=== PATIENT | male | born 1985 | race Caucasian/White ===

== ENCOUNTER 2021-05-23 21:14 | Emergency (ER) | payer OTHER, SELFPAY ==
[2021-05-23 21:26] VITALS: BP 115/78; PULSE 58; RESP 16; TEMP 36.4; O2SAT 97; BMI 24.3
--- NOTE | 2021-05-23 22:04 | W.ED.DIZZY ---
HPI - Dizziness General: Chief Complaint: Dizziness Stated Complaint: DIZZY/VOMITING Time Seen by Provider: 05/23/21 22:00 History of Present Illness: HPI Narrative: Patient is a 35-year-old male comes to the ED with an episode of dizziness, nausea and vomiting. Symptoms resolved once patient was back in ED room. He states that he was at work all day today and when he drove home he started feeling really dizzy. He had to sinker puller and had multiple episodes of nausea and vomiting. He described the dizziness as a spinning feeling. He felt worse whenever he turns his head either left or right. Denies any similar episodes in the past. He did say for the past approximately 2 weeks he has been having a lot of sinus and nasal congestion drainage. He also reports some mild sinus pain. He says his ears feel kind of full. Patient also told me he is out of his albuterol inhaler and would like to get his prescription refilled. Associated symptoms: Reports nasal congestion; Denies chest pain, chills, headache(s), nausea, palpitations or vomiting Associated neuro symptoms: Deny numbness in extremities Review of Systems Const: Denies: fever(s), chills or fatigue Eyes: Denies: change in vision or eye discomfort ENMT: Reports: nasal discharge, nasal congestion and sinus pain (Bilateral maxillary sinus pain); Denies: throat pain or odynophagia Card: Denies: chest pain, palpitations, edema, swelling of feet/ankles, dyspnea on exertion or orthopnea Resp: Denies: dyspnea, productive cough or non-productive cough GI: Denies: abdominal pain, nausea, vomiting, diarrhea, constipation or hematochezia : Denies: flank pain, difficulty urinating, dysuria or hematuria Musc: Denies: neck pain, back pain or extremity swelling Skin/Breast: Denies: rash or new lesions Neuro: Reports: dizziness; Denies: headache(s), numbness in extremities or weakness in extremities Physical Exam Const: COMMON NORMALS: no acute distress, patient oriented x3, healthy appearing and alert GENERAL APPEARANCE: cooperative and comfortable HENMT: COMMON NORMALS: normocephalic HEAD & SCALP: normocephalic NOSE: Nasal discharge present clear Clear nasal discharge laterality: bilateral MOUTH: Normal oral and palatal mucosa present THROAT: posterior oropharynx normal and uvula midline Eye: COMMON NORMALS: Equal, round and reactive pupils present, EOMs intact bilaterally and conjunctivae normal CONJUNCTIVA: Yes conjunctivae normal PUPIL: Yes Equal, round and reactive pupils present Neck/C-Spine: COMMON NORMALS: supple GENERAL: Yes normal visual inspection Resp: COMMON NORMALS: normal respiratory effort, No retractions, No use of accessory muscles and clear to auscultation bilaterally AUSCULTATION: clear to auscultation bilaterally Cardio: COMMON NORMALS: regular rate, regular rhythm, S1 normal heart sound present, S2 normal heart sound present, No gallops present (Cardio), No clicks present (Cardio), No murmurs present (Cardio) and Peripheral pulses 2+ throughout RATE: regular rate RHYTHM: regular rhythm HEART SOUNDS: S1 normal heart sound present and S2 normal heart sound present PERIPHERAL PULSES: Peripheral pulses 2+ throughout GI: COMMON NORMALS: Normal to inspection, nondistended, normoactive bowel sounds present, Soft to palpation, non-tender and no masses PALPATION: Yes Soft to palpation : COMMON NORMALS: Yes no CVA tenderness BLADDER/KIDNEY EXAM: Yes no CVA tenderness Back/Pelvis: COMMON NORMALS: no CVA tenderness Extremity: COMMON NORMALS: normal to inspection Neuro: COMMON NORMALS: patient oriented x3 and moves all extremities SENSORIUM/ORIENTATION: Yes alert SPEECH: speech normal GAIT: Yes Normal gait present Skin: GENERAL SKIN EXAM: dry skin Course Reevaluation(s): Reevaluation #1: After patient got IV fluids he said he feels a lot better. He denies any nausea or dizziness. He feels like he is back to normal. Time: 23:50 Vital Signs: Vital signs: Vital Signs Temperature 97.5 F L 05/23/21 21:26 Pulse Rate 68 05/24/21 00:35 Respiratory Rate 17 05/24/21 00:35 Blood Pressure 129/74 05/24/21 00:35 Pulse Oximetry 97 05/24/21 00:35 MDM - Dizziness MDM Narrative: Medical decision making narrative: Patient is a 35-year-old male comes to the ED with episode of dizziness nausea and vomiting. His symptoms resolved upon arrival to ED. Patient said he has been dealing with sinus pain, congestion and drainage along with nasal congestion and drainage for the past couple weeks. Exam shows a healthy nontoxic appearing 35-year-old male who is in no acute distress or pain. He does have some maxillary bilateral sinus tenderness and nasal discharge. Exam findings suggestive of sinusitis. Upon evaluation in the ED he had no dizziness or nausea. CBC showed white blood cell count 10.6 but the rest of CBC and CMP were unremarkable. Patient was given IV 1 L fluids said he felt back to normal after IV fluids. He denies any dizziness or nausea. Patient diagnosed with sinusitis and dizziness. He was sent home with a prescription for azithromycin, Medrol Dosepak and meclizine. I also wrote him a prescription for refill on his albuterol inhaler. Patient was told to follow-up with his PCP in 7 to 10 days for reevaluation. Return to ED precautions given. Patient understood and agreed with plan. Lab Data: Attestation: I reviewed the patient's lab results. Labs: Lab Results 05/23/21 05/23/21 Range/Units 23:00 23:00 WBC 10.6 H (4.0-10.0) 10^3/ uL RBC 5.07 (4.1-5.3) 10^6/u L Hgb 15.7 (11.7-16.6) g/dL Hct 45.7 (42.0-52.0) % MCV 90.1 (80-94) fL MCH 31.0 (28.0-34.0) pg MCHC 34.4 (30.0-36.0) g/dL RDW 12.2 (12.1-15.1) % Plt Count 223 (130-400) 10^3/c mm MPV 8.6 (7.4-10.4) fL Neut % (Auto) 84.2 % Lymph % (Auto) 10.0 % [place] % (Auto) 4.6 % Eos % (Auto) 0.2 % Baso % (Auto) 0.6 % Neut # (Auto) 8.89 H (1.8-7.7) 10^3/u L Lymph # (Auto) 1.1 (0.8-4.8) 10^3/u L [place] # (Auto) 0.5 (0.2-0.9) 10^3/u L Eos # (Auto) 0.0 (0.0-0.8) 10^3/u L Baso # (Auto) 0.1 (0.0-0.1) 10^3/u L Nucleated RBC % (a uto) 0 % Nucleated RBCs # 0.0 /100WBC Sodium 138 (136-145) mmol/L Potassium 4.2 (3.5-5.1) mmol/L Chloride 102 (98-107) mmol/L Carbon Dioxide 26 (22-29) mmol/L Anion Gap 14.2 (5-19) BUN 12 (6-20) mg/dL Creatinine 0.8 (0.7-1.2) mg/dL GFR Calculation 108.8 (90-130) mL/min Glucose 98 (65-115) mg/dL Calculated Osmolal ity 286 (285-295) mOsm/k g Calcium 8.9 (8.5-10.5) mg/dL Total Bilirubin 0.4 (0.15-1.2) mg/dL AST 13 (0-40) U/L ALT 20 (0-41) U/L Alkaline Phosphata se 67 (40-130) IU/L Total Protein 6.5 L (6.6-8.7) g/dL Albumin 4.4 (3.5-5.2) g/dL Globulin 2.1 (1.3-4.6) g/dL Discharge Plan Discharge Patient Disposition: Home Clinical Impression: Dizziness Sinusitis Qualifiers: Sinusitis location: maxillary Chronicity: acute Recurrence: non-recurrent Qualified Code(s): J01.00 - Acute maxillary sinusitis, unspecified Condition: Stable Prescriptions: New Medrol (Jaylon) 4 mg tablets,dose pack See Rx Instructions .ROUTE .COMPLEX Qty: 21 RF: 0 azithromycin 250 mg tablet See Rx Instructions .ROUTE .COMPLEX Qty: 6 RF: 0 meclizine 25 mg tablet 25 mg PO DAILY PRN (Reason: dizziness) Qty: 15 RF: 0 albuterol sulfate 90 mcg/actuation HFA aerosol inhaler 2 inh inhalation Q6H PRN (Reason: shortness of breath or wheezing) Qty: 8.5 RF: 0 Discharge Orders: Discharge ED (Routine); Ordered 05/23/21 Ordered By: Husam Nelson Referrals: Wander Parra MD [Primary Care Provider] - Discharge Diet: Regular Discharge Activity: Increase activity as tolerated Patient Instructions: Sinusitis (ED), Dizziness (ED) Activity Restrictions/Additional Instructions: Follow-up with medical provider as directed. Take medications as prescribed. Return to the ER or your medical provider if condition worsens. Please read and understand discharge instructions. Thank you for choosing [facility] for your healthcare needs today. Please realize this is an emergency room and that we are providing you with a medical screening exam and this may not be complete and all inclusive of all the testing and or work up that you may need to determine your ailment or severity of your illness. It is very important that you follow up as instructed or that you return to the Emergency Department should you have concerns or if your condition changes or worsens in any way. Coding Level of Care Code ED Warehouse Logistics Manager for [place] Fwarmen Exam Comprehensive
[2021-05-23] MEDS: sodium chloride 0.9% 1,000 ML 999 ML IV (23:07)
[2021-05-23 23:13] LABS: Basophils # 0.1 10^3/uL (0.0-0.1); Basophils % 0.6 %; Eosinophils % 0.2 %; Hematocrit 45.7 % (42.0-52.0); Hemoglobin 15.7 g/dL (11.7-16.6); Lymphocytes # 1.1 10^3/uL (0.8-4.8); Mean Corpuscular HGB Conc 34.4 g/dL (30.0-36.0); Mean Corpuscular Volume 90.1 fL (80-94); Mean Platelet Volume 8.6 fL (7.4-10.4); Monocytes # 0.5 10^3/uL (0.2-0.9); Monocytes % 4.6 %; Neutrophils # 8.89 10^3/uL (1.8-7.7); Neutrophils % 84.2 %; Nucleated Red Blood Cells % 0 %; Platelet Count 223 10^3/cmm (130-400); Red Blood Count 5.07 10^6/uL (4.1-5.3); Red Cell Distribution Width 12.2 % (12.1-15.1); White Blood Count 10.6 10^3/uL (4.0-10.0)
[2021-05-23 23:52] LABS: Alanine Aminotransferase 20 U/L (0-41); Albumin Level 4.4 g/dL (3.5-5.2); Alkaline Phosphatase 67 IU/L (40-130); Anion Gap 14.2 (5-19); Aspartate Amino Transferase 13 U/L (0-40); Blood Urea Nitrogen 12 mg/dL (6-20); Calcium 8.9 mg/dL (8.5-10.5); Carbon Dioxide 26 mmol/L (22-29); Chloride 102 mmol/L (98-107); Creatinine Clr Calc Pharmacy 149.8385; Globulin 2.1 g/dL (1.3-4.6); Glomerular Filtration Rate 108.8 mL/min (90-130); Glucose 98 mg/dL (65-115); Osmolality Calculated 286 mOsm/kg (285-295); Potassium 4.2 mmol/L (3.5-5.1); Sodium 138 mmol/L (136-145); Total Bilirubin 0.4 mg/dL (0.15-1.2); Total Protein 6.5 g/dL (6.6-8.7)
[2021-05-24 00:35] VITALS: BP 129/74; PULSE 68; RESP 17; O2SAT 97
--- NOTE | 2021-05-24 10:49 | PC.NURSE ---
Pt here and picked up Rx for Albuterol inhaler
== END 2021-05-24 00:15 | disposition home or self-care (01) ==
PROVIDERS: Emergency Provider Physician Assistant; PCP Family Medicine
DX: R42 Dizziness and giddiness (principal); J01.00 Acute maxillary sinusitis, unspecified
CPT/HCPCS: 80053; 85025; 96360; 99283; J7030

== ENCOUNTER 2022-09-04 08:46 | Emergency (ER) | payer OTHER, SELFPAY ==
[2022-09-04 09:08] VITALS: BP 133/66; PULSE 75; RESP 18; TEMP 36.6; O2SAT 95
--- NOTE | 2022-09-04 09:13 | ED_ITS ---
HPI - Wound/Laceration General: Chief Complaint: Wound/Laceration Stated Complaint: Right thumb lac Time Seen by Provider: 09/04/22 08:52 History of Present Illness: Patient is a 36-year-old male who comes to the ED with laceration to right thumb. Injury occurred this morning while working on a roof. He says he was working on some metal giorgi and a piece of the metal roof cut dorsal aspect of his thumb. He is not up-to-date on his tetanus. Associated symptoms: Denies chills, fever(s), nausea or vomiting Review of Systems Const: Denies: fever(s), chills or fatigue Eyes: Denies: change in vision or eye discomfort ENMT: Denies: throat pain, odynophagia, nasal discharge or nasal congestion Card: Denies: chest pain, palpitations, edema, swelling of feet/ankles, dyspnea on exertion or orthopnea Resp: Denies: dyspnea, productive cough or non-productive cough GI: Denies: abdominal pain, nausea, vomiting, diarrhea, constipation or hematochezia : Denies: flank pain, difficulty urinating, dysuria or hematuria Musc: Denies: neck pain, back pain or extremity swelling Skin/Breast: Reports: new lesions (Right thumb laceration); Denies: rash Neuro: Denies: headache(s), numbness in extremities or weakness in extremities PFS ED PFSH: Medical History (Updated 09/05/22 @ 07:13 by ANDIE Lee) No pertinent family history Surgical History (Updated 09/05/22 @ 07:13 by ANDIE Lee) No pertinent past surgical history Physical Exam Const: COMMON NORMALS: no acute distress, patient oriented x3, healthy appearing and alert HENMT: COMMON NORMALS: normocephalic HEAD & SCALP: normocephalic MOUTH: Normal oral and palatal mucosa present THROAT: posterior oropharynx normal and uvula midline Neck/C-Spine: COMMON NORMALS: supple GENERAL: Yes normal visual inspection Resp: COMMON NORMALS: normal respiratory effort, No retractions, No use of accessory muscles and clear to auscultation bilaterally AUSCULTATION: clear to auscultation bilaterally Cardio: COMMON NORMALS: regular rate, regular rhythm, S1 normal heart sound present, S2 normal heart sound present, No gallops present (Cardio), No clicks present (Cardio), No murmurs present (Cardio) and Peripheral pulses 2+ throughout RATE: regular rate RHYTHM: regular rhythm HEART SOUNDS: S1 normal heart sound present and S2 normal heart sound present PERIPHERAL PULSES: Peripheral pulses 2+ throughout GI: COMMON NORMALS: Normal to inspection, nondistended, normoactive bowel sounds present, Soft to palpation, non-tender and no masses PALPATION: Yes Soft to palpation : COMMON NORMALS: Yes no CVA tenderness BLADDER/KIDNEY EXAM: Yes no CVA tenderness Back/Pelvis: COMMON NORMALS: no CVA tenderness Extremity: NARRATIVE EXTREMITY EXAM: Right thumb?1 cm superficial linear laceration to dorsal aspect of thumb. No active bleeding noted. No nailbed injury or nail damage seen. Full range of motion and strength in thumb and no concerns for any tendon laceration. Neurovascular intact. Neuro: COMMON NORMALS: patient oriented x3 SENSORIUM/ORIENTATION: Yes alert GAIT: Yes Normal gait present Skin: GENERAL SKIN EXAM: dry skin Procedures Laceration Laceration 1: Site: hand (Thumb) Side (If applicable): right Size (cm): 1 Description: linear Depth: simple, single layer Local Anesthetic: lidocaine 1% Amount of anesthesia used (mL): 3 Pre-repair: irrigated extensively (With normal saline and cleaned with CHG swab) Skin layer closed with: nylon Size (cm): 4-0 Number of sutures: 3 Technique: simple, interrupted Course Vital Signs: Vital signs: Vital Signs Temperature 97.8 F 09/04/22 09:08 Pulse Rate 75 09/04/22 09:08 Respiratory Rate 18 09/04/22 09:08 Blood Pressure 133/66 09/04/22 09:08 Pulse Oximetry 95 09/04/22 09:08 Oxygen Delivery Me thod 09/04/22 09:08 MDM - Wound/Laceration Medical Decision Making Patient has 1 cm superficial linear laceration to dorsal aspect of thumb. It does not involve any tendons patient has full range of motion in thumb. No nailbed injury or nail damage seen. He was given updated tetanus here in the ED. Lidocaine 1% was used as local and 3 sutures were placed to close laceration. See procedure note for details. He was discharged home with a prophylactic antibiotic prescription. Sutures removed in 7 to 10 days. Patient understood and agreed with plan. Discharge Plan Discharge Patient Disposition: Home Clinical Impression: Finger laceration Qualifiers: Encounter type: initial encounter Finger: thumb Damage to nail status: without damage Foreign body presence: without foreign body Laterality: right Qualified Code(s): S61.011A - Laceration without foreign body of right thumb without damage to nail, initial encounter Condition: Stable Prescriptions: New cephalexin 500 mg capsule 500 mg PO Q6H 4 Days Qty: 16 0RF No Action Medrol (Jaylon) 4 mg tablets,dose pack See Rx Instructions .ROUTE .COMPLEX Qty: 21 0RF Rx Instructions: orally per package directions azithromycin 250 mg tablet See Rx Instructions .ROUTE .COMPLEX Qty: 6 0RF Rx Instructions: take 500 mg today (day 1), then 250 mg for 4 days (days 2-5) meclizine 25 mg tablet 25 mg PO DAILY PRN (Reason: dizziness) Qty: 15 0RF albuterol sulfate 90 mcg/actuation HFA aerosol inhaler 2 inh inhalation Q6H PRN (Reason: shortness of breath or wheezing) Qty: 8.5 0RF Discharge Orders: Discharge ED (Routine); Ordered 09/04/22 Ordered By: Husam Nelson Referrals: Wander Parra MD [Primary Care Provider] - Discharge Diet: Regular Discharge Activity: Resume usual activity Patient Instructions: Finger Laceration (ED) Activity Restrictions/Additional Instructions: Take full course of antibiotics as prescribed. Keep laceration site clean and dry.. Clean daily with soap and water and cover with bandage. Watch for signs of infection such as redness, warmth, increased tenderness and puslike drainage. If you see the signs of infection return to the ED, urgent care or PCP for reevaluation. call your PCP to schedule a follow-up appointment for reevaluation and suture removal in about 7- 10 days. Continue taking all home meds. Follow discharge plans as discussed. You can return to the ED if symptoms worsen. Coding Level of Care Code ED Customer Business Manager for [place] Duval Exam Comprehensive
[2022-09-04] MEDS: tetanus-dipt-pertussis 0.5 mL SDV IM (09:24)
== END 2022-09-04 10:19 | disposition home or self-care (01) ==
PROVIDERS: Emergency Provider Physician Assistant; PCP Family Medicine
DX: S61.011A Laceration without foreign body of right thumb without damage to nail, initial encounter (principal); Z23 Encounter for immunization; W45.8XXA Other foreign body or object entering through skin, initial encounter
CPT/HCPCS: 12001; 90471; 90715; 99283

== ENCOUNTER 2022-09-09 09:00 | Emergency (ER) | payer OTHER, SELFPAY ==
[2022-09-09 09:35] VITALS: BP 140/84; PULSE 63; RESP 16; TEMP 36.6; O2SAT 97; BMI 24.3
--- NOTE | 2022-09-09 09:48 | ED_ITS ---
HPI - General Adult General: Chief complaint: General Medical Stated complaint: Revist, lac site infection Time Seen by Provider: 09/09/22 09:43 History of Present Illness: 36-year-old male presents for wound check. Patient had sutures placed on his right thumb 6 days ago. He had little bit of mild drainage out of it that was purulent yesterday. Reports that it was little bit swollen and red yesterday but improved today. He presents today just to have it checked out. Patient with no other systemic complaints Review of Systems General: Reports: 10 or more systems reviewed and unremarkable except in HPI and below Skin/Breast: Reports: other (Please see HPI) PFS ED PFSH: Medical History (Updated 09/09/22 @ 09:51 by Owen Toscano DO) No pertinent family history Surgical History (Updated 09/05/22 @ 07:13 by ANDIE Lee) No pertinent past surgical history Physical Exam Const: COMMON NORMALS: no acute distress, patient oriented x3 and no limitations Resp: COMMON NORMALS: normal respiratory effort, No retractions and No use of accessory muscles Cardio: COMMON NORMALS: regular rate and regular rhythm RATE: regular rate RHYTHM: regular rhythm Extremity: COMMON NORMALS: full ROM and capillary refill normal Neuro: COMMON NORMALS: patient oriented x3 Psych: COMMON NORMALS: mental status grossly normal, cooperative, normal affect and speech normal SPEECH: Yes normal speech Skin: NARRATIVE SKIN EXAM: Patient with 3 sutures in thumb with no signs of infection, erythema or concern other concerns. Course Vital Signs: Vital signs: Vital Signs Temperature 98 F 09/09/22 09:35 Pulse Rate 63 09/09/22 09:35 Respiratory Rate 16 09/09/22 09:35 Blood Pressure 140/84 09/09/22 09:35 Pulse Oximetry 97 09/09/22 09:35 Oxygen Delivery Me thod 09/09/22 09:35 MDM - General Adult Medical Decision Making Patient's wound shows no active signs of infection. He was started on antibiotics which I recommended he continue to take. Patient should follow-up in a couple days to have the sutures removed. Discharge Plan Discharge Patient Disposition: Home Clinical Impression: Visit for wound check Condition: Stable Prescriptions: No Action Medrol (Jaylon) 4 mg tablets,dose pack See Rx Instructions .ROUTE .COMPLEX Qty: 21 0RF Rx Instructions: orally per package directions azithromycin 250 mg tablet See Rx Instructions .ROUTE .COMPLEX Qty: 6 0RF Rx Instructions: take 500 mg today (day 1), then 250 mg for 4 days (days 2-5) meclizine 25 mg tablet 25 mg PO DAILY PRN (Reason: dizziness) Qty: 15 0RF albuterol sulfate 90 mcg/actuation HFA aerosol inhaler 2 inh inhalation Q6H PRN (Reason: shortness of breath or wheezing) Qty: 8.5 0RF Discharge Orders: Discharge ED (Routine); Ordered 09/09/22 Ordered By: Owen Toscano Referrals: Wander Parra MD [Primary Care Provider] - Discharge Diet: Usual diet Discharge Activity: Resume usual activity Patient Instructions: Opioid Safety, Pain Management, Wound Care (General), Laceration (ED) Activity Restrictions/Additional Instructions: Please follow-up with your primary care provider, ER or urgent care in 3 days for suture removal Coding Level of Care Code ED Toilet Products Molder for [place] Duval
[2022-09-09 09:58] VITALS: BP 140/84; PULSE 63; RESP 16; TEMP 36.6; O2SAT 97
== END 2022-09-09 09:59 | disposition home or self-care (01) ==
PROVIDERS: Emergency Provider Student in an Organized Health Care Education/Training Program; PCP Family Medicine
DX: Z48.00 Encounter for change or removal of nonsurgical wound dressing (principal)
CPT/HCPCS: 99282

== ENCOUNTER 2024-11-11 12:05 | Outpatient (CLI) | payer OTHER, SELFPAY ==
--- NOTE | 2024-11-11 12:15 | USR_ITS ---
PROCEDURE INFORMATION: Exam: US Scrotum Exam date and time: 11/11/2024 12:28 PM Age: 38 years old Clinical indication: Scrotum pain; Additional info: Testicle pain TECHNIQUE: Imaging protocol: Real-time ultrasound of the scrotum and contents with color Doppler and image documentation. COMPARISON: US abdomen complete* [id number] 11/29/2020 9:33 AM FINDINGS: Right testicle: Normal. No mass. Normal color Doppler and arterial waveforms. No torsion. 5.4 cm x 2.3 cm x 2.8 cm Left testicle: Normal. No mass. Normal color Doppler and arterial waveforms. No torsion. 5.3 cm x 2.5 cm x 3 cm Epididymides: Normal. Right 7 mm, left 12 mm Scrotum/soft tissues: Normal. No hydroceles. US/US scrotum [id number] IMPRESSION: Normal scrotal ultrasound.
== END 2024-11-11 12:06 | disposition home or self-care (01) ==
PROVIDERS: PCP Family Medicine; Visit Provider Nurse Practitioner Family
DX: N50.819 Testicular pain, unspecified (principal)
CPT/HCPCS: 76870